=== PATIENT | female | born 1990 | race Caucasian/White ===

== ENCOUNTER 2018-07-17 07:19 | Day surgery (SDC) | payer BC ==
[~2018-07-17 07:19] MED LIST: Bupivacaine 25%/EPINEPHrine/PF 30 ML ONE
[2018-07-17] MEDS ORDERED: Lidocaine 2% 5 ML SDV ONE ×2 (07:27→08:34)
[2018-07-17] MEDS ORDERED: Midazolam 1 MG/ML 2 ML SDV ONE (07:27)
[2018-07-17] MEDS ORDERED: Propofol 200 MG/20 ML SDV ONE (07:27)
[2018-07-17] MEDS ORDERED: fentaNYL 100 MCG/2 ML SDV ONE (07:27)
--- NOTE | 2018-07-17 07:36 | PCM.PREANE ---
Preanesthetic Assessment - Anesthesia/Transfusion/Family Hx Anesthesia History: Prior Anesthesia Without Reaction (tonsils, RIGHT ulnar nerve: no anesthesia issues noted.) Other Type of Anesthesia Reaction Comment: "My mother had problems due to her high BP" "not sure what" Family History of Anesthesia Reaction: No Transfusion History: No Prior Transfusion(s) - Review of Systems General: No Symptoms (obese, hypothyroid) Pulmonary: No Symptoms Cardiovascular: No Symptoms Gastrointestinal: No Symptoms Neurological: No Symptoms Other: Reports: Thyroid Problems (hypothyroid-on meds) - Physical Assessment NPO Status Date: 07/17/18 NPO Status Time: 00:00 Pulse: 78 O2 Sat by Pulse Oximetry: 97 Respiratory Rate: 16 Blood Pressure: 135/77 Temperature: 99.7 C Height: 1.7 m Weight: 92.986 kg ASA Class: 2 Mental Status: Alert & Oriented x3 Airway Class: Mallampati = 1 Dentition: Reports: Normal Dentition Thyro-Mental Finger Breadths: 2 Mouth Opening Finger Breadths: 3 ROM/Head Extension: Full Lungs: Clear to Auscultation, Normal Respiratory Effort Cardiovascular: Regular Rate, Regular Rhythm, No Murmurs - Lab Values: cbc from 07/03/18 was normal. HCG:neg - Allergies Allergies/Adverse Reactions: Allergies Allergy/AdvReac Type Severity Reaction Status Date / Time No Known Allergies Allergy Verified 07/12/18 13:51 - Blood Blood Available: No Product(s) Available: None - Anesthesia Plan Pre-Op Medication Ordered: None - Acknowledgements Anesthesia Type Planned: MAC (Plan: MAC with GA backup) Pt an Appropriate Candidate for the Planned Anesthesia: Yes Alternatives and Risks of Anesthesia Discussed w Pt/Guardian: Yes Pt/Guardian Understands and Agrees with Anesthesia Plan: Yes PreAnesthesia Questionnaire HEENT History: Reports: None Cardiovascular History: Reports: None Respiratory History: Reports: None Gastrointestinal History: Reports: None Genitourinary History: Reports: None Musculoskeletal History: Reports: None Neurological History: Reports: None Psychiatric History: Reports: None Endocrine/Metabolic History: Reports: Hypothyroidism, Obesity/BMI 30+ Hematologic History: Reports: None Immunologic History: Reports: None Oncologic (Cancer) History: Reports: None Dermatologic History: Reports: None - Infectious Disease History Infectious Disease History: Reports: Chicken Pox - Past Surgical History Head Surgeries/Procedures: Reports: None HEENT Surgical History: Reports: Tonsillectomy Musculoskeletal Surgical History: Reports: Other (See Below) Other Musculoskeletal Surgeries/Procedures:: R ulanar nerve surgery - SUBSTANCE USE Smoking Status *Q: Never Smoker Recreational Drug Use History: No - HOME MEDS Home Medications: Home Meds Levothyroxine Sodium [Levoxyl] 50 mcg PO DAILY 07/12/18 [History] PNV95/Ferrous Fumarate/FA [ Vitamin Tablet] 1 tab PO DAILY 07/12/18 [ History] - CURRENT (IN HOUSE) MEDS Current Meds: Current Medications Bupivacaine HCl/Epinephrine Bitart (Marcaine 0.25%/Epinephrine 1:200,000) 10 ml INJECT ONETIME ONE Stop: 07/17/18 08:01 Cefazolin Sodium/Dextrose 2 gm (/ Premix) 50 mls @ 100 mls/hr IV ONETIME ONE Stop: 07/17/18 08:29 Lactated Ringer's (Ringers, Lactated) 1,000 mls @ 125 mls/hr IV ASDIRECTED MILA Discontinued Medications Fentanyl (Sublimaze) Confirm Administered Dose 100 mcg .ROUTE .STK-MED ONE Stop: 07/17/18 07:28 Bupivacaine HCl/Epinephrine Bitart (Sensorc Mpf 0.25%-Epi [id number]) Confirm Administered Dose 30 mls @ as directed .ROUTE .STK-MED ONE Stop: 07/17/18 07:20 Lidocaine (Xylocaine-Mpf 2%) Confirm Administered Dose 5 ml .ROUTE .STK-MED ONE Stop: 07/17/18 07:28 Midazolam HCl (Versed 1 Mg/Ml) Confirm Administered Dose 2 mg .ROUTE .STK-MED ONE Stop: 07/17/18 07:28 Propofol (Diprivan 20 Ml) Confirm Administered Dose 200 mg .ROUTE .STK-MED ONE Stop: 07/17/18 07:28
[2018-07-17] MEDS ORDERED: ceFAZolin 2 GM in Premix Bag 1 BAG IV ONE (08:00)
[2018-07-17] MEDS ORDERED: Bupivacaine 0.25%/EPINEPHrine 1:200,000 10 ML SDV INJECT ONE (08:00)
[2018-07-17] MEDS ORDERED: Lactated Ringers 1,000 ML IV SCH (08:00)
[2018-07-17] MEDS ORDERED: Sodium Chloride 0.9% 20 ML ONE (08:34)
[2018-07-17] MEDS ORDERED: ceFAZolin 1 GM Vial ONE (08:34)
--- NOTE | 2018-07-17 11:04 | PCM.POSTAN ---
POST ANESTHESIA ASSESSMENT - MENTAL STATUS Mental Status: Alert, Oriented - VITAL SIGNS Pulse Rate: 77 SaO2: 96 Resp Rate: 18 Blood Pressure: 125/65 - RESPIRATORY Respiratory Status: Respiratory Rate WNL, Airway Patent, O2 Saturation Stable - CARDIOVASCULAR CV Status: Pulse Rate WNL, Blood Pressure Stable - GASTROINTESTINAL GI Status: No Symptoms - PAIN Pain Score: 0 (no pain, no nausea) - POST OP HYDRATION Hydration Status: Adequate & Stable
--- NOTE | 2018-07-17 11:04 | PCM48HPAN ---
Post Anesthesia Note - EVALUATION WITHIN 48HRS OF ANESTHETIC Vital Signs in Normal Range: Yes Patient Participated in Evaluation: Yes Respiratory Function Stable: Yes Airway Patent: Yes Cardiovascular Function Stable: Yes Hydration Status Stable: Yes Pain Control Satisfactory: Yes Nausea and Vomiting Control Satisfactory: Yes Pulse Rate: 77 SaO2: 96 Resp Rate: 18 Temperature: 99.7 C Blood Pressure: 125/65
--- NOTE | 2018-07-20 08:56 | PCM.OPNOTE ---
- General Post-Op/Procedure Note Date of Surgery/Procedure: 07/17/18 Operative Procedure(s): left carpal tunnel release Pre Op Diagnosis: left carpal tunnel syndrome Post-Op Diagnosis: Same Anesthesia Technique: Local, MAC Primary Surgeon: Sharonda Canales [employer] Instructor: Danielle Hebert Complications: None Condition: Good
--- NOTE | 2018-07-22 20:12 | OR ---
SURGEON: SAM VENEGAS MD DATE OF PROCEDURE: 07/17/2018 PREOPERATIVE DIAGNOSIS: Left carpal tunnel syndrome. POSTOPERATIVE DIAGNOSIS: Left carpal tunnel syndrome. PROCEDURE: Left carpal tunnel release. SPRAY STAINER: FAHEEM Tang. ANESTHESIA: Local MAC. INDICATIONS: Ms. Brown is a 27-year-old female seen today in evaluation for left carpal tunnel release. Risks and benefits were discussed including, but not limited to, bleeding, infection, damage to underlying or overlying structures, possible need for future interventions, and possible scarring. PROCEDURE IN DETAIL: After informed consent was obtained and placed on the chart, the patient was brought to the operating theater and laid in supine position. After adequate local MAC anesthesia was obtained, the area was prepped and draped and the arm was exsanguinated and tourniquet was insufflated to 200 mmHg. Attention was then paid to dissection of the transverse carpal ligament and under direct visualization, the skin was incised using a #15 blade until the ligament was breached down below. Once adequately breached, dissection was carried distally and proximally until complete release under direct visualization. The wound was then copiously irrigated and closed using 5-0 nylon stitch in a horizontal mattress fashion. The patient tolerated this well. All counts and needles were correct at the end of the case. FOLLOWUP INSTRUCTIONS: The wound was dressed with Xeroform, fluffs, and a Kerlix gauze dressing and a 2- inch Phillip wrap, and she will see us in 2 weeks or sooner if any problems, questions, or concerns. She was given a prescription for pain control. HEGGTHE / MODL /[id number]
== END 2018-07-17 09:45 | disposition home or self-care (01) ==
LOC: MW.SDS 07:19
PROVIDERS: ATTEND Plastic Surgery
DX: G56.02 Carpal tunnel syndrome, left upper limb (principal); E66.9 Obesity, unspecified; E03.9 Hypothyroidism, unspecified; Z79.890 Hormone replacement therapy
CPT/HCPCS: 64721; 81025; J0690; J2250; J2704; J3010; J7120; 01810